=== PATIENT | female | born 1950 | race African-American/Black ===

== ENCOUNTER 2016-06-20 15:14 | Outpatient (CLI) | payer MEDICARE ==
--- NOTE | 2016-06-20 16:06 | Mammography Report ---
Screening mammogram: Location of prior mammogram unknown. Routine views demonstrates as well circumscribed slightly elongated nodule in the lateral left breast measuring approximately 7 mm. In the central right CC projection there is a well-circumscribed rounded nodule measuring approximately 4 mm. This is not identified in the MLO projection. The breast pattern otherwise is generally fatty replaced and unremarkable. CAD used. Impression: Bilateral focal asymmetries. Recommendation: Bilateral BI-RADS CATEGORY: 0 = Needs additional imaging evaluation ACR BI-RADS MAMMOGRAPHIC CODES: 0 = Needs additional imaging evaluation; 1 = Negative; 2 = Benign; 3 = Probably benign; 4 = Suspicious; 5 = Malignant; 6 = Known biopsy-proven malignancy COMMENT: 1. Dense breast tissue, i.e., adenosis, fibrocystic changes, etc., may obscure an underlying neoplasm. 2. Approximately 10% of cancers are not detected with mammography. 3. A negative mammography report should not delay biopsy if a clinically suspicious mass is present. breast ultrasound. If the patient has no obvious cysts to correlate with these nodules additional compression imaging of is recommended.
== END 2016-06-20 15:15 | disposition home or self-care (01) ==
LOC: SPVWC 15:14
PROVIDERS: ATTEND Internal Medicine
DX: Z12.31 Encounter for screening mammogram for malignant neoplasm of breast (principal)
CPT/HCPCS: 77067; G0202

== ENCOUNTER 2016-09-20 15:26 | Outpatient (CLI) | payer MEDICARE ==
--- NOTE | 2016-09-21 08:13 | Mammography Report ---
BILATERAL DIGITAL DIAGNOSTIC MAMMOGRAM and BILATERAL BREAST ULTRASOUND: 09/20/16 15:26:00 CLINICAL: Recalled for bilateral asymmetries. COMPARISON:06/20/16 screening FINDINGS: Bilateral spot compression views were performed and demonstrate partial effacement of asymmetries on the CC views. Satisfactory effacement of the left retroareolar asymmetry on the spot MLO view. Ultrasound of the right breast was performed and demonstrated no mass, cyst or shadowing to correlate with the mammographic asymmetry which appears to be at 6 o'clock. Ultrasound of the left breast demonstrated a single cyst at 4:30 o'clock 3 cm from the nipple measuring 6 x 3 x 3 mm. This probably correlates with the mammographic asymmetry on the CC view. IMPRESSION: Probably benign mammographic asymmetries with no right ultrasound correlate and a left cyst at 4 o'clock which probably correlates with the mammographic asymmetry. BI-RADS CATEGORY: 3 - - Probably Benign RECOMMENDATION: Six month followup bilateral mammogram and ultrasound if needed. ACR BI-RADS MAMMOGRAPHIC CODES: 0 = Needs additional imaging evaluation; 1 = Negative; 2 = Benign; 3 = Probably benign; 4 = Suspicious; 5 = Malignant; 6 = Known biopsy-proven malignancy COMMENT: 1. Dense breast tissue, i.e., adenosis, fibrocystic changes, etc., may obscure an underlying neoplasm. 2. Approximately 10% of cancers are not detected with mammography. 3. A negative mammography report should not delay biopsy if a clinically suspicious mass is present. COMMENT: Patient follow-up letters are generated via our [employer] application.
== END 2016-09-20 15:27 | disposition home or self-care (01) ==
LOC: SPVWC 15:26
PROVIDERS: ATTEND Internal Medicine
DX: N60.02 Solitary cyst of left breast (principal); N64.89 Other specified disorders of breast
CPT/HCPCS: 76642; G0204; 77066